=== PATIENT | male | born 1985 | race Caucasian/White ===

== ENCOUNTER 2021-04-20 16:56 | Emergency (ER) | payer MEDICAID ==
[2021-04-20 17:12] LABS: HEMATOCRIT 48.4 % (42.0-52.0); HEMOGLOBIN 16.4 g/dL (13.5-18.0); MEAN CELL VOLUME 86 fl (78-100); MEAN CORPUSCULAR HEMOGLOBIN 29 pg (27-31); MEAN CORPUSCULAR HGB CONC 34 g/dL (33-37); MEAN PLATELET VOLUME 8.7 fl (7.4-10.4); PLATELET COUNT 327 K/mm3 (130-400); RED BLOOD COUNT 5.61 M/mm3 (4.20-5.60); RED CELL DISTRIBUTION WIDTH 11.8 % (11.5-14.5); WHITE BLOOD COUNT 11.5 K/mm3 (4.8-10.8)
[2021-04-20] MEDS ORDERED: SYMBICORT1 AE2 IH (17:16)
[2021-04-20] MEDS ORDERED: ALBUTEROL1.25 MG/3 IH (17:16)
[2021-04-20 17:27] LABS: ALBUMIN 4.8 g/dL (3.5-5.0)
[2021-04-20 17:28] LABS: POTASSIUM 3.9 mmol/L (3.5-5.1)
[2021-04-20 17:29] LABS: CALCIUM 9.2 mg/dL (8.3-10.5)
[2021-04-20 17:30] LABS: TOTAL PROTEIN 8.1 g/dL (6.4-8.3)
[2021-04-20 17:32] LABS: TOTAL BILIRUBIN 0.6 mg/dL (0.2-1.2)
[2021-04-20 18:03] LABS: LYMPHOCYTE 54 % (20-51); MONOCYTE 6 % (3-10); NEUTROPHILS 38 % (42-75)
[2021-04-20 18:53] VITALS: BP 110/78
== END 2021-04-20 18:16 | disposition short-term general hospital (02) ==
LOC: ED 16:56
PROVIDERS: Nurse Practitioner
DX: J45.901 Unspecified asthma with (acute) exacerbation (principal); Z87.891 Personal history of nicotine dependence; Z20.822 Contact with and (suspected) exposure to COVID-19; Z79.899 Other long term (current) drug therapy
CPT/HCPCS: J2060; J2930